=== PATIENT | male | born 1945 | race Asian ===

== ENCOUNTER → 2017-07-09 | Outpatient (CLI) | payer MEDICARE ==
[~2017-07-09] MED LIST: ASPI-650 PO; CLOP75TA PO; ENAL10TA PO; FAMO20TA7 PO; LATA2.5D3 EACHEYE; METO50TA82 PO
== END | disposition home or self-care (01) ==
LOC: RAD 16:11
PROVIDERS: ATTEND Family Medicine
DX: N45.1 Epididymitis (principal); N43.2 Other hydrocele
CPT/HCPCS: 76870

== ENCOUNTER → 2018-01-11 | Outpatient (CLI) | payer MEDICARE ==
[~2018-01-11] MED LIST changes: +LIDOCAINE 1%, 20ML ONE
== END | disposition home or self-care (01) ==
LOC: RAD 09:13
PROVIDERS: ATTEND Otolaryngology
DX: R22.1 Localized swelling, mass and lump, neck (principal)
CPT/HCPCS: 76536; 76942; 88173; J3490

== ENCOUNTER → 2018-02-11 | Outpatient (CLI) | payer MEDICARE ==
[~2018-02-11] MED LIST changes: -LIDOCAINE 1%, 20ML ONE
== END | disposition home or self-care (01) ==
LOC: CFH 07:43
PROVIDERS: ATTEND Family Medicine
DX: M51.16 Intervertebral disc disorders with radiculopathy, lumbar region (principal); M48.061 Spinal stenosis, lumbar region without neurogenic claudication; M25.78 Osteophyte, vertebrae; M25.551 Pain in right hip; Z96.651 Presence of right artificial knee joint
CPT/HCPCS: 72148

== ENCOUNTER → 2018-02-21 | Outpatient (CLI) | payer MEDICARE | END | disposition home or self-care (01) | LOC: CFH 15:16 | PROVIDERS: ATTEND Family Medicine | DX: I10 Essential (primary) hypertension (principal); I65.23 Occlusion and stenosis of bilateral carotid arteries; R20.2 Paresthesia of skin; M54.9 Dorsalgia, unspecified; M25.551 Pain in right hip | CPT/HCPCS: 93880 ==

== ENCOUNTER → 2019-04-02 | Outpatient (CLI) | payer MEDICARE | END | disposition home or self-care (01) | LOC: CFH 10:35 | PROVIDERS: ATTEND Internal Medicine Cardiovascular Disease | DX: I35.1 Nonrheumatic aortic (valve) insufficiency (principal); I35.8 Other nonrheumatic aortic valve disorders; I10 Essential (primary) hypertension; E78.5 Hyperlipidemia, unspecified | CPT/HCPCS: 93306 ==

== ENCOUNTER 2019-09-11 13:32 | Inpatient (IN) | payer MEDICARE ==
[~2019-09-11] VITALS: Ht 167.6 cm; Wt 58.0 kg
[2019-09-11] MEDS ORDERED: methylPREDNISolone SOD SUCC 125 MG/2 ML ONE (13:55)
[2019-09-11] MEDS ORDERED: ALBUTEROL/IPRATROPIUM 2.5MG/0.5MG, 3 ML NPPB SCH (14:00)
[2019-09-11] MEDS ORDERED: methylPREDNISolone SOD SUCC 125 MG/2 ML IV ONE (14:00)
[2019-09-11] MEDS ORDERED: ALBUTEROL/IPRATROPIUM 2.5MG/0.5MG, 3 ML ONE (14:11)
--- NOTE | 2019-09-11 14:14 | NUR ---
PT HERE TODAY FOR SOB THAT STARTED LAST NIGHT. USED INHALER MULTIPLE TIMES BEFORE COMING TO ER. CURRENTLY RESTING ON GURNEY. USING ACCESSORY MUSCLES TO BREATHE AND INSPIRATORY AND EXPIRATORY WHEEZES HEARD. FAMILY AT BEDSIDE. PIV STARTED. PT MEDICATED PER EMAR. BLOOD COLLECTED. WAS AT BEDSIDE TO ASSESS PT. RADIOLOGY CURRENTLY AT BEDSIDE.
--- NOTE | 2019-09-11 14:19 | NUR ---
RESPIRATORY THERAPIST AT BEDSIDE PROVIDING TREATMENT NOW.
[2019-09-11 14:39] LABS: BASOPHILS # (AUTO) 0.06 x10^3/uL (0-0.1); BASOPHILS % (AUTO) 0 % (0-1); EOSINOPHILS # (AUTO) 0.13 x10^3/uL (0-0.4); EOSINOPHILS % (AUTO) 1 % (1-7); LYMPHOCYTES # (AUTO) 0.64 x10^3/uL (1-3.4); LYMPHOCYTES % (AUTO) 4 % (22-44); MD NO; MEAN CORPUSCULAR HEMOGLOBIN 31.3 pg (27.5-34.5); MEAN CORPUSCULAR HGB CONC 32.7 g/dL (33.2-36.2); MEAN CORPUSCULAR VOLUME 95.8 fL (81-97); MEAN PLATELET VOLUME 8.4 fL (7.4-10.4); MONOCYTES # (AUTO) 0.33 x10^3/uL (0.2-0.8); MONOCYTES % (AUTO) 2 % (2-9); NEUTROPHILS # (AUTO) 13.85 x10^3/uL (1.8-6.8); NEUTROPHILS % (AUTO) 92 % (42-75); PLATELET COUNT 173 x10^3/uL (130-400); RED CELL DISTRIBUTION WIDTH 14.4 % (9.4-14.8)
[2019-09-11 14:44] LABS: ALANINE AMINOTRANSFERASE 40 U/L (12-78); ALBUMIN 3.4 g/dL (3.4-5.0); ANION GAP 6 mmol/L (5-15); CALCIUM 8.4 mg/dL (8.5-10.1); CHLORIDE 110 mmol/L (98-107); CREATININE 1.22 mg/dL (0.7-1.3)
[2019-09-11 14:49] LABS: ALKALINE PHOSPHATASE 88 U/L (45-117); BILIRUBIN,TOTAL 0.6 mg/dL (0.2-1.0); TOTAL PROTEIN 8.2 g/dL (6.4-8.2); TROPONIN I < 0.015 ng/mL (0.000-0.045)
[2019-09-11] MEDS ORDERED: ATOR20TA37 PO (14:51)
[2019-09-11] MEDS ORDERED: AMLO-150 PO (14:51)
[2019-09-11] MEDS ORDERED: LABE100T6 PO (14:51)
--- NOTE | 2019-09-11 14:53 | NUR ---
MED REC COMPLETED. PT RESTING ON GURNEY. PATTERSON. VSS. STATES HE FEELS BETTER. NOW ABLE TO SPEAK IN FULL SENTENCES WITHOUT TAKING MULTIPLE BREATHS.
--- NOTE | 2019-09-11 15:24 | NUR ---
[facility] AT BEDSIDE ASSESSING PT NOW.
[2019-09-11] MEDS ORDERED: BUDE10.2 INH (15:43)
[2019-09-11] MEDS ORDERED: IPRA4AER INH (15:43)
--- NOTE | 2019-09-11 15:48 | NUR ---
REPORT GIVEN TO MEKHI DRAKE.
[2019-09-11] MEDS ORDERED: LABETALOL 5 MG/ML SYR. (IV ONLY) IVPush PRN (16:00)
[2019-09-11] MEDS ORDERED: hydrALAzine 20 MG/ML, 1ML IVPush PRN (16:00)
[2019-09-11] MEDS: ALBUTEROL SULFATE 2.5 MG/3 ML NPPB SCH ×2 (16:00→20:18)
[2019-09-11] MEDS ORDERED: ALBUTEROL/IPRATROPIUM 2.5MG/0.5MG, 3 ML HHN SCH (16:00)
[2019-09-11] MEDS ORDERED: ACETAMINOPHEN 325 MG TABLET PO PRN (16:00)
[2019-09-11] MEDS ORDERED: ONDANSETRON 2MG/ML, 2ML IVPush PRN (16:00)
--- NOTE | 2019-09-11 16:18 | NUR ---
BLOOD CULTURES BEING DRAWN NOW.
[2019-09-11 16:52] VITALS: BP 121/66
[2019-09-11] MEDS: NICOTINE 7 MG/24 HR PATCH.TD24 TD SCH (17:00)
[2019-09-11] MEDS ORDERED: ENOXAPARIN 40 MG/0.4 ML SQ SCH (17:00)
[2019-09-11] MEDS ORDERED: CEFTRIAXONE PMX 1GM/50ML 50 ML IV SCH (17:00)
[2019-09-11] MEDS ORDERED: PROMETHAZINE 25 MG/ML, 1ML IM PRN (17:00)
[2019-09-11] MEDS ORDERED: AZITHROMYCIN 500 MG in SODIUM CHLORIDE 0.9% 250 ML IV SCH (17:30)
[2019-09-11] MEDS: GUAIFENESIN 200 MG TABLET PO SCH ×2 (17:30→21:08)
[2019-09-11] MEDS: SODIUM CHLORIDE 0.9% 1,000 ML IV SCH (17:30)
[2019-09-11 18:25] LABS: RAPID INFLUENZA A Negative (Negative); RAPID INFLUENZA B Negative (Negative)
[2019-09-11] MEDS: BUDESONIDE 0.5 MG/2 ML INHA NPPB SCH (20:18)
[2019-09-11] MEDS: LATANOPROST OPHTH 0.005%, 2.5ML EACHEYE SCH (21:06)
[2019-09-11] MEDS: LABETALOL 100 MG TABLET PO SCH (21:07)
[2019-09-11] MEDS: CALCIUM CARBONATE 500 MG TABLET PO SCH (21:07)
[2019-09-11] MEDS: ATORVASTATIN 20 MG TABLET PO SCH (21:07)
[2019-09-11] MEDS: methylPREDNISolone SOD SUCC 125 MG/2 ML IVPush SCH (21:07)
[2019-09-11 21:44] VITALS: BP 114/51
[2019-09-11 22:35] LABS: MICROSCOPIC AUTO
[2019-09-12] MEDS: methylPREDNISolone SOD SUCC 125 MG/2 ML IVPush SCH ×4 (02:49→21:22)
[2019-09-12 02:54] VITALS: BP 161/89
[2019-09-12] MEDS: ALBUTEROL SULFATE 2.5 MG/3 ML NPPB SCH ×3 (03:11→14:15)
[2019-09-12] MEDS: GUAIFENESIN 200 MG TABLET PO SCH ×4 (05:38→21:21)
[2019-09-12] MEDS: SODIUM CHLORIDE 0.9% 1,000 ML IV SCH (05:38)
[2019-09-12 05:45] LABS: MEAN CORPUSCULAR HEMOGLOBIN 31.9 pg (27.5-34.5); MEAN CORPUSCULAR HGB CONC 33.1 g/dL (33.2-36.2); MEAN CORPUSCULAR VOLUME 96.5 fL (81-97); MEAN PLATELET VOLUME 8.7 fL (7.4-10.4); PLATELET COUNT 156 x10^3/uL (130-400); RED BLOOD COUNT 3.59 x10^6/uL (4.38-5.82); RED CELL DISTRIBUTION WIDTH 14.5 % (9.4-14.8)
[2019-09-12 05:52] LABS: CHLORIDE 110 mmol/L (98-107)
[2019-09-12 05:58] LABS: ALANINE AMINOTRANSFERASE 35 U/L (12-78); ALKALINE PHOSPHATASE 75 U/L (45-117); ANION GAP 7 mmol/L (5-15); BILIRUBIN,TOTAL 0.3 mg/dL (0.2-1.0); CALCIUM 8.2 mg/dL (8.5-10.1); CREATININE 1.53 mg/dL (0.7-1.3); TOTAL PROTEIN 7.3 g/dL (6.4-8.2)
[2019-09-12 06:24] LABS: BASOPHILS # (AUTO) 0.01 x10^3/uL (0-0.1); BASOPHILS % (AUTO) 0 % (0-1); EOSINOPHILS % (AUTO) 0 % (1-7); LYMPHOCYTES # (AUTO) 0.62 x10^3/uL (1-3.4); LYMPHOCYTES % (AUTO) 8 % (22-44); MD NO; MONOCYTES # (AUTO) 0.09 x10^3/uL (0.2-0.8); MONOCYTES % (AUTO) 1 % (2-9); NEUTROPHILS # (AUTO) 7.16 x10^3/uL (1.8-6.8); NEUTROPHILS % (AUTO) 91 % (42-75)
[2019-09-12 06:49] VITALS: BP 106/63
[2019-09-12] MEDS: FAMOTIDINE 20 MG TABLET PO SCH (08:25)
[2019-09-12] MEDS: AMLODIPINE 5 MG TABLET PO SCH ×2 (08:25→08:37)
[2019-09-12] MEDS: CALCIUM CARBONATE 500 MG TABLET PO SCH (08:25)
[2019-09-12] MEDS: AZITHROMYCIN 500 MG TABLET PO SCH (08:25)
[2019-09-12] MEDS: ASPIRIN 325 MG TABLET EC PO SCH (08:25)
[2019-09-12] MEDS: CLOPIDOGREL 75 MG TABLET PO SCH (08:25)
[2019-09-12] MEDS: LABETALOL 100 MG TABLET PO SCH ×3 (08:26→21:21)
[2019-09-12 08:32] VITALS: BP 99/50
[2019-09-12] MEDS ORDERED: AMOXICILLIN/CLAV 875-125MG TABLET PO SCH (09:00)
[2019-09-12] MEDS ORDERED: ENALAPRIL 10 MG TABLET PO SCH (09:00)
[2019-09-12] MEDS: BUDESONIDE 0.5 MG/2 ML INHA NPPB SCH ×2 (09:18→19:26)
[2019-09-12 12:32] LABS: HEMOGLOBIN A1C 5.8 % (4.2-6.3)
[2019-09-12] MEDS: HEPARIN 5,000 UNITS/ML, 1ML SQ SCH ×2 (12:33→21:22)
[2019-09-12 13:29] VITALS: BP 140/70
[2019-09-12 13:50] VITALS: BP 134/77
[2019-09-12] MEDS: ALBUTEROL SULFATE 2.5 MG/3 ML NPPB PRN (14:15)
[2019-09-12] MEDS: NICOTINE 7 MG/24 HR PATCH.TD24 TD SCH (17:00)
[2019-09-12] MEDS ORDERED: SODIUM CHLORIDE 0.9% 1,000 ML IV SCH (17:00)
[2019-09-12] MEDS: ALBUTEROL/IPRATROPIUM 2.5MG/0.5MG, 3 ML NPPB SCH (19:26)
[2019-09-12 19:48] VITALS: BP 160/71
[2019-09-12] MEDS ORDERED: TEMPLATE NON-FORMULARY MED. (Budesonide/Formoterol Fumarate (Symbicort 160-4.5 Mcg Inhaler INH SCH (21:00)
[2019-09-12] MEDS: LATANOPROST OPHTH 0.005%, 2.5ML EACHEYE SCH (21:21)
[2019-09-12] MEDS: ATORVASTATIN 20 MG TABLET PO SCH (21:21)
[2019-09-12] MEDS: CALCIUM CARBONATE 500 MG TAB.CHEW PO PRN (21:54)
[2019-09-13] MEDS: ALBUTEROL/IPRATROPIUM 2.5MG/0.5MG, 3 ML NPPB SCH ×4 (00:37→18:43)
[2019-09-13] MEDS: CALCIUM CARBONATE 500 MG TAB.CHEW PO PRN ×2 (01:28→20:15)
[2019-09-13 02:02] VITALS: BP 115/68
[2019-09-13 02:21] LABS: BASOPHILS # (AUTO) 0.01 x10^3/uL (0-0.1); BASOPHILS % (AUTO) 0 % (0-1); EOSINOPHILS # (AUTO) 0.22 x10^3/uL (0-0.4); EOSINOPHILS % (AUTO) 1 % (1-7); LYMPHOCYTES # (AUTO) 0.61 x10^3/uL (1-3.4); LYMPHOCYTES % (AUTO) 4 % (22-44); MD NO; MEAN CORPUSCULAR HEMOGLOBIN 31.9 pg (27.5-34.5); MEAN CORPUSCULAR HGB CONC 32.9 g/dL (33.2-36.2); MEAN CORPUSCULAR VOLUME 96.8 fL (81-97); MEAN PLATELET VOLUME 8.5 fL (7.4-10.4); MONOCYTES # (AUTO) 0.44 x10^3/uL (0.2-0.8); MONOCYTES % (AUTO) 3 % (2-9); NEUTROPHILS # (AUTO) 14.04 x10^3/uL (1.8-6.8); NEUTROPHILS % (AUTO) 92 % (42-75); PLATELET COUNT 167 x10^3/uL (130-400); RED BLOOD COUNT 3.61 x10^6/uL (4.38-5.82)
[2019-09-13] MEDS: methylPREDNISolone SOD SUCC 125 MG/2 ML IVPush SCH ×4 (02:24→19:58)
[2019-09-13 02:32] LABS: ALANINE AMINOTRANSFERASE 35 U/L (12-78); ANION GAP 5 mmol/L (5-15); CALCIUM 8.8 mg/dL (8.5-10.1); CHLORIDE 112 mmol/L (98-107); CREATININE 1.61 mg/dL (0.7-1.3)
[2019-09-13 02:34] LABS: ALKALINE PHOSPHATASE 76 U/L (45-117); BILIRUBIN,TOTAL 0.3 mg/dL (0.2-1.0); TOTAL PROTEIN 7.4 g/dL (6.4-8.2)
[2019-09-13] MEDS ORDERED: LORazepam 0.5MG TABLET PO ONE ×2 (03:34→04:00)
[2019-09-13] MEDS: GUAIFENESIN 200 MG TABLET PO SCH ×4 (06:24→19:58)
[2019-09-13] MEDS: BUDESONIDE 0.5 MG/2 ML INHA NPPB SCH ×2 (06:48→18:43)
[2019-09-13 07:13] VITALS: BP 162/76
[2019-09-13] MEDS ORDERED: MORPHINE SULFATE 4 MG/ML, 1ML IVPush ONE (07:30)
[2019-09-13] MEDS ORDERED: MAGNESIUM SULFATE PMX 2GM/50ML 50 ML IV ONE (07:30)
[2019-09-13] MEDS: HEPARIN 5,000 UNITS/ML, 1ML SQ SCH ×2 (07:40→15:46)
[2019-09-13 08:15] VITALS: BP 156/76
[2019-09-13] MEDS ORDERED: SODIUM CHLORIDE 0.9% 1,000ML IVBOLUS ONE (08:30)
[2019-09-13] MEDS ORDERED: TEMPLATE NON-FORMULARY MED. (Ipratropium/Albuterol Sulfate (Combivent Respimat Inhal Spray INH SCH (09:00)
[2019-09-13] MEDS: AMLODIPINE 5 MG TABLET PO SCH (09:17)
[2019-09-13] MEDS: LABETALOL 100 MG TABLET PO SCH ×2 (09:17→20:01)
[2019-09-13] MEDS: AZITHROMYCIN 500 MG TABLET PO SCH (09:17)
[2019-09-13] MEDS: CLOPIDOGREL 75 MG TABLET PO SCH (09:17)
[2019-09-13] MEDS: FAMOTIDINE 20 MG TABLET PO SCH (09:17)
[2019-09-13] MEDS: ASPIRIN 325 MG TABLET EC PO SCH (09:17)
[2019-09-13] MEDS: ALBUTEROL SULFATE 2.5 MG/3 ML NPPB PRN (11:40)
[2019-09-13 13:10] VITALS: BP 155/79
[2019-09-13] MEDS: NICOTINE 7 MG/24 HR PATCH.TD24 TD SCH (15:47)
[2019-09-13] MEDS ORDERED: SODIUM CHLORIDE 0.9% 1,000 ML IV SCH (17:00)
[2019-09-13] MEDS: ATORVASTATIN 20 MG TABLET PO SCH (19:58)
[2019-09-13] MEDS: LATANOPROST OPHTH 0.005%, 2.5ML EACHEYE SCH (19:58)
[2019-09-13 20:00] VITALS: BP 124/71
[2019-09-13 20:19] VITALS: BP 138/73
[2019-09-13] MEDS ORDERED: FAMOTIDINE 20 MG TABLET PO SCH (21:00)
[2019-09-14] MEDS: HEPARIN 5,000 UNITS/ML, 1ML SQ SCH ×4 (00:52→23:33)
[2019-09-14] MEDS: methylPREDNISolone SOD SUCC 125 MG/2 ML IVPush SCH ×4 (02:02→20:56)
[2019-09-14] MEDS: ALBUTEROL/IPRATROPIUM 2.5MG/0.5MG, 3 ML NPPB SCH ×4 (02:24→23:05)
[2019-09-14 02:28] VITALS: BP 164/94
[2019-09-14 05:31] LABS: MEAN CORPUSCULAR HEMOGLOBIN 31.5 pg (27.5-34.5); MEAN CORPUSCULAR HGB CONC 32.7 g/dL (33.2-36.2); MEAN CORPUSCULAR VOLUME 96.5 fL (81-97); MEAN PLATELET VOLUME 8.6 fL (7.4-10.4); PLATELET COUNT 158 x10^3/uL (130-400); RED BLOOD COUNT 3.49 x10^6/uL (4.38-5.82); RED CELL DISTRIBUTION WIDTH 14.9 % (9.4-14.8)
[2019-09-14 05:37] LABS: CHLORIDE 110 mmol/L (98-107)
[2019-09-14 05:39] LABS: ANION GAP 3 mmol/L (5-15); CALCIUM 8.5 mg/dL (8.5-10.1); CREATININE 1.55 mg/dL (0.7-1.3)
[2019-09-14] MEDS: GUAIFENESIN 200 MG TABLET PO SCH ×4 (05:54→20:56)
[2019-09-14] MEDS ORDERED: ALBUTEROL/IPRATROPIUM 2.5MG/0.5MG, 3 ML NPPB SCH ×2 (06:00→10:30)
[2019-09-14 06:21] LABS: BASOPHILS % (AUTO) 0 % (0-1); EOSINOPHILS % (AUTO) 0 % (1-7); LYMPHOCYTES # (AUTO) 0.45 x10^3/uL (1-3.4); LYMPHOCYTES % (AUTO) 4 % (22-44); MD SCAN; MONOCYTES % (AUTO) 2 % (2-9); NEUTROPHILS # (AUTO) 12.52 x10^3/uL (1.8-6.8); NEUTROPHILS % (AUTO) 95 % (42-75)
[2019-09-14] MEDS: BUDESONIDE 0.5 MG/2 ML INHA NPPB SCH ×2 (07:10→19:20)
[2019-09-14 07:27] VITALS: BP 161/87
[2019-09-14] MEDS: morphine SULFATE 10 MG/ML, 1ML IVPush PRN ×2 (08:47→12:37)
[2019-09-14] MEDS: ASPIRIN 325 MG TABLET EC PO SCH (08:47)
[2019-09-14] MEDS: AMLODIPINE 5 MG TABLET PO SCH (08:48)
[2019-09-14] MEDS: LABETALOL 100 MG TABLET PO SCH ×2 (08:48→20:56)
[2019-09-14] MEDS: FAMOTIDINE 20 MG TABLET PO SCH (08:48)
[2019-09-14] MEDS: CLOPIDOGREL 75 MG TABLET PO SCH (08:48)
[2019-09-14] MEDS: AZITHROMYCIN 500 MG TABLET PO SCH (08:48)
[2019-09-14] MEDS: THEOPHYLLINE 100 MG CAP.ER.24H PO SCH (09:28)
[2019-09-14 13:34] VITALS: BP 156/91
[2019-09-14] MEDS: LORazepam 2 MG/ML, 1ML IVPush PRN ×2 (15:34→23:33)
[2019-09-14] MEDS: NICOTINE 7 MG/24 HR PATCH.TD24 TD SCH (15:36)
[2019-09-14] MEDS: FUROSEMIDE 20 MG/2 ML IV SCH (17:16)
[2019-09-14 19:07] VITALS: BP 124/90
[2019-09-14] MEDS: ATORVASTATIN 20 MG TABLET PO SCH (20:56)
[2019-09-14] MEDS: LATANOPROST OPHTH 0.005%, 2.5ML EACHEYE SCH (21:42)
[2019-09-15 02:02] VITALS: BP 128/72
[2019-09-15] MEDS: methylPREDNISolone SOD SUCC 125 MG/2 ML IVPush SCH ×4 (02:08→20:16)
[2019-09-15 04:56] LABS: MEAN CORPUSCULAR HEMOGLOBIN 31.8 pg (27.5-34.5); MEAN CORPUSCULAR HGB CONC 32.8 g/dL (33.2-36.2); MEAN CORPUSCULAR VOLUME 97.1 fL (81-97); MEAN PLATELET VOLUME 8.8 fL (7.4-10.4); PLATELET COUNT 154 x10^3/uL (130-400); RED BLOOD COUNT 3.53 x10^6/uL (4.38-5.82); RED CELL DISTRIBUTION WIDTH 14.9 % (9.4-14.8)
[2019-09-15 05:08] LABS: ANION GAP 5 mmol/L (5-15); CALCIUM 8.2 mg/dL (8.5-10.1); CHLORIDE 109 mmol/L (98-107)
[2019-09-15 05:09] LABS: CREATININE 1.58 mg/dL (0.7-1.3)
[2019-09-15] MEDS: GUAIFENESIN 200 MG TABLET PO SCH ×4 (05:21→20:16)
[2019-09-15] MEDS: FUROSEMIDE 20 MG/2 ML IV SCH ×2 (05:21→17:46)
[2019-09-15 06:00] LABS: BASOPHILS % (AUTO) 0 % (0-1); EOSINOPHILS % (AUTO) 0 % (1-7); LYMPHOCYTES # (AUTO) 0.43 x10^3/uL (1-3.4); LYMPHOCYTES % (AUTO) 4 % (22-44); MD SCAN; MONOCYTES # (AUTO) 0.25 x10^3/uL (0.2-0.8); MONOCYTES % (AUTO) 2 % (2-9); NEUTROPHILS # (AUTO) 11.65 x10^3/uL (1.8-6.8); NEUTROPHILS % (AUTO) 95 % (42-75)
[2019-09-15] MEDS: ALBUTEROL/IPRATROPIUM 2.5MG/0.5MG, 3 ML NPPB SCH ×5 (06:55→23:00)
[2019-09-15] MEDS: BUDESONIDE 0.5 MG/2 ML INHA NPPB SCH ×2 (06:55→18:59)
[2019-09-15 07:15] VITALS: BP 146/83
[2019-09-15] MEDS: AMLODIPINE 5 MG TABLET PO SCH (09:06)
[2019-09-15] MEDS: ASPIRIN 325 MG TABLET EC PO SCH (09:06)
[2019-09-15] MEDS: THEOPHYLLINE 100 MG CAP.ER.24H PO SCH (09:07)
[2019-09-15] MEDS: FAMOTIDINE 20 MG TABLET PO SCH (09:07)
[2019-09-15] MEDS: CLOPIDOGREL 75 MG TABLET PO SCH (09:07)
[2019-09-15] MEDS: LABETALOL 100 MG TABLET PO SCH ×2 (09:07→20:16)
[2019-09-15] MEDS: AZITHROMYCIN 500 MG TABLET PO SCH (09:07)
[2019-09-15] MEDS: HEPARIN 5,000 UNITS/ML, 1ML SQ SCH ×3 (09:08→23:58)
[2019-09-15] MEDS: morphine SULFATE 10 MG/ML, 1ML IVPush PRN (09:08)
[2019-09-15] MEDS ORDERED: RACEPINEPHRINE INH 2.25%, 0.5ML NPPB ONE (10:30)
[2019-09-15] MEDS: LORazepam 2 MG/ML, 1ML IVPush PRN (10:45)
[2019-09-15] MEDS ORDERED: FUROSEMIDE 20 MG/2 ML IV SCH (13:00)
[2019-09-15 13:36] VITALS: BP 143/83
[2019-09-15] MEDS: NICOTINE 7 MG/24 HR PATCH.TD24 TD SCH (17:45)
[2019-09-15 19:59] VITALS: BP 139/89
[2019-09-15] MEDS: ATORVASTATIN 20 MG TABLET PO SCH (20:16)
[2019-09-15] MEDS: LATANOPROST OPHTH 0.005%, 2.5ML EACHEYE SCH (20:17)
[2019-09-15] MEDS ORDERED: OMNIPAQUE 350 MG/ML, 75ML BOTTLE ONE (21:38)
[2019-09-16] MEDS: methylPREDNISolone SOD SUCC 125 MG/2 ML IVPush SCH ×4 (02:01→22:02)
[2019-09-16 02:07] VITALS: BP 140/88
[2019-09-16] MEDS: morphine SULFATE 10 MG/ML, 1ML IVPush PRN (02:13)
[2019-09-16] MEDS ORDERED: MORPHINE SULFATE 4 MG/ML, 1ML IVPush ONE (05:00)
[2019-09-16] MEDS: FUROSEMIDE 20 MG/2 ML IV SCH ×2 (05:07→15:57)
[2019-09-16 05:31] LABS: MEAN CORPUSCULAR HEMOGLOBIN 31.7 pg (27.5-34.5); MEAN CORPUSCULAR HGB CONC 32.6 g/dL (33.2-36.2); MEAN CORPUSCULAR VOLUME 97.3 fL (81-97); MEAN PLATELET VOLUME 8.6 fL (7.4-10.4); PLATELET COUNT 193 x10^3/uL (130-400); RED BLOOD COUNT 3.68 x10^6/uL (4.38-5.82); RED CELL DISTRIBUTION WIDTH 14.5 % (9.4-14.8)
[2019-09-16 05:44] LABS: CHLORIDE 105 mmol/L (98-107)
[2019-09-16 05:49] LABS: ALBUMIN 3.4 g/dL (3.4-5.0); ANION GAP 10 mmol/L (5-15); BASOPHILS % (AUTO) 0 % (0-1); CALCIUM 8.4 mg/dL (8.5-10.1); CREATININE 1.97 mg/dL (0.7-1.3); EOSINOPHILS # (AUTO) 0.13 x10^3/uL (0-0.4); EOSINOPHILS % (AUTO) 1 % (1-7); LYMPHOCYTES # (AUTO) 0.55 x10^3/uL (1-3.4); LYMPHOCYTES % (AUTO) 4 % (22-44); MD SCAN; MONOCYTES # (AUTO) 0.45 x10^3/uL (0.2-0.8); MONOCYTES % (AUTO) 3 % (2-9); NEUTROPHILS # (AUTO) 14.09 x10^3/uL (1.8-6.8); NEUTROPHILS % (AUTO) 93 % (42-75)
[2019-09-16] MEDS: GUAIFENESIN 200 MG TABLET PO SCH ×4 (06:15→20:35)
[2019-09-16] MEDS: BUDESONIDE 0.5 MG/2 ML INHA NPPB SCH ×2 (06:55→19:10)
[2019-09-16] MEDS: ALBUTEROL/IPRATROPIUM 2.5MG/0.5MG, 3 ML NPPB SCH ×5 (06:55→22:54)
[2019-09-16 08:00] VITALS: BP 160/88
[2019-09-16] MEDS: CLOPIDOGREL 75 MG TABLET PO SCH (08:35)
[2019-09-16] MEDS: AZITHROMYCIN 500 MG TABLET PO SCH (08:35)
[2019-09-16] MEDS: AMLODIPINE 5 MG TABLET PO SCH (08:35)
[2019-09-16] MEDS: ASPIRIN 325 MG TABLET EC PO SCH (08:35)
[2019-09-16] MEDS: FAMOTIDINE 20 MG TABLET PO SCH (08:35)
[2019-09-16] MEDS: LABETALOL 100 MG TABLET PO SCH ×2 (08:35→20:36)
[2019-09-16] MEDS: THEOPHYLLINE 100 MG CAP.ER.24H PO SCH (08:35)
[2019-09-16] MEDS: HEPARIN 5,000 UNITS/ML, 1ML SQ SCH ×3 (08:36→23:47)
[2019-09-16] MEDS: MORPHINE SULFATE 4 MG/ML, 1ML IVPush PRN (08:37)
[2019-09-16] MEDS: CEFTRIAXONE PMX 1GM/50ML 50 ML IV SCH (12:28)
--- NOTE | 2019-09-16 14:18 | NUR ---
MAINTENANCE ANALYST REC PUREE/NTL: Upright at 90* for PO intake Meds floated in puree 1:1 superviison Double swallow Effortful swallow Stop PO with any difficulty or s/sx of aspiration SWALLOW SIGN POSTED Addendum: 09/16/19 at 1418 by Cristina PALOMO Amended: Links added.
[2019-09-16 14:55] VITALS: BP 153/76
[2019-09-16] MEDS: NICOTINE 7 MG/24 HR PATCH.TD24 TD SCH (15:58)
[2019-09-16 18:39] VITALS: BP 146/79
[2019-09-16] MEDS: ATORVASTATIN 20 MG TABLET PO SCH (20:35)
[2019-09-16] MEDS: LATANOPROST OPHTH 0.005%, 2.5ML EACHEYE SCH (20:36)
[2019-09-16] MEDS: OXYcodone IR 5MG TABLET PO PRN (23:50)
[2019-09-17] VITALS (10 sets, daily range): BP systolic 125–172; BP diastolic 72–90
[2019-09-17] MEDS: methylPREDNISolone SOD SUCC 125 MG/2 ML IVPush SCH ×4 (04:13→23:06)
[2019-09-17 04:54] LABS: MEAN CORPUSCULAR HEMOGLOBIN 31.6 pg (27.5-34.5); MEAN CORPUSCULAR HGB CONC 32.8 g/dL (33.2-36.2); MEAN CORPUSCULAR VOLUME 96.4 fL (81-97); RED BLOOD COUNT 2.32 x10^6/uL (4.38-5.82); RED CELL DISTRIBUTION WIDTH 14.5 % (9.4-14.8)
[2019-09-17 04:59] LABS: ALBUMIN 2.8 g/dL (3.4-5.0); ANION GAP 5 mmol/L (5-15); CALCIUM 7.8 mg/dL (8.5-10.1); CHLORIDE 106 mmol/L (98-107); CREATININE 2.41 mg/dL (0.7-1.3)
[2019-09-17] MEDS: FUROSEMIDE 20 MG/2 ML IV SCH ×2 (05:22→17:57)
[2019-09-17] MEDS: ALBUTEROL/IPRATROPIUM 2.5MG/0.5MG, 3 ML NPPB SCH ×5 (05:36→19:02)
[2019-09-17 05:43] LABS: BASOPHILS % (AUTO) 0 % (0-1); EOSINOPHILS % (AUTO) 0 % (1-7); LYMPHOCYTES # (AUTO) 0.49 x10^3/uL (1-3.4); LYMPHOCYTES % (AUTO) 4 % (22-44); MD SCAN; MEAN PLATELET VOLUME 9.2 fL (7.4-10.4); MONOCYTES % (AUTO) 4 % (2-9); NEUTROPHILS # (AUTO) 13.03 x10^3/uL (1.8-6.8); NEUTROPHILS % (AUTO) 92 % (42-75); PLATELET COUNT 133 x10^3/uL (130-400)
[2019-09-17] MEDS: GUAIFENESIN 200 MG TABLET PO SCH ×4 (06:05→21:11)
[2019-09-17] MEDS: OXYcodone IR 5MG TABLET PO PRN ×2 (06:05→12:45)
[2019-09-17 06:21] LABS: MEAN CORPUSCULAR HEMOGLOBIN 31.9 pg (27.5-34.5); MEAN CORPUSCULAR HGB CONC 33.4 g/dL (33.2-36.2); MEAN CORPUSCULAR VOLUME 95.6 fL (81-97); MEAN PLATELET VOLUME 8.7 fL (7.4-10.4); PLATELET COUNT 136 x10^3/uL (130-400); RED BLOOD COUNT 2.27 x10^6/uL (4.38-5.82)
[2019-09-17 06:47] LABS: BASOPHILS % (AUTO) 0 % (0-1); EOSINOPHILS # (AUTO) 0.08 x10^3/uL (0-0.4); EOSINOPHILS % (AUTO) 1 % (1-7); LYMPHOCYTES # (AUTO) 0.55 x10^3/uL (1-3.4); LYMPHOCYTES % (AUTO) 4 % (22-44); MD SCAN; MONOCYTES # (AUTO) 0.41 x10^3/uL (0.2-0.8); MONOCYTES % (AUTO) 3 % (2-9); NEUTROPHILS # (AUTO) 12.51 x10^3/uL (1.8-6.8); NEUTROPHILS % (AUTO) 92 % (42-75)
[2019-09-17] MEDS: BUDESONIDE 0.5 MG/2 ML INHA NPPB SCH ×2 (07:06→19:02)
[2019-09-17] MEDS: HEPARIN 5,000 UNITS/ML, 1ML SQ SCH ×3 (08:00→16:07)
[2019-09-17] MEDS: PINK LADY ENEMA 490 ML BOTTLE PR SCH ×3 (09:00→23:39)
[2019-09-17] MEDS ORDERED: SODIUM CHLORIDE 0.9% 1,000ML IVBOLUS ONE (09:00)
[2019-09-17] MEDS: FAMOTIDINE 20 MG TABLET PO SCH (10:28)
[2019-09-17] MEDS: CLOPIDOGREL 75 MG TABLET PO SCH (10:28)
[2019-09-17] MEDS: AMLODIPINE 5 MG TABLET PO SCH (10:28)
[2019-09-17] MEDS: ASPIRIN 325 MG TABLET EC PO SCH ×2 (10:29→10:30)
[2019-09-17] MEDS: AZITHROMYCIN 500 MG TABLET PO SCH (10:29)
[2019-09-17] MEDS: LABETALOL 100 MG TABLET PO SCH ×2 (10:29→21:11)
[2019-09-17] MEDS: THEOPHYLLINE 100 MG CAP.ER.24H PO SCH (10:54)
[2019-09-17] MEDS: CEFTRIAXONE PMX 1GM/50ML 50 ML IV SCH (11:28)
[2019-09-17 11:56] LABS: MEAN CORPUSCULAR HEMOGLOBIN 31.7 pg (27.5-34.5); MEAN CORPUSCULAR HGB CONC 33.3 g/dL (33.2-36.2); MEAN CORPUSCULAR VOLUME 95.1 fL (81-97); MEAN PLATELET VOLUME 9.3 fL (7.4-10.4); PLATELET COUNT 142 x10^3/uL (130-400); RED BLOOD COUNT 2.22 x10^6/uL (4.38-5.82); RED CELL DISTRIBUTION WIDTH 14.1 % (9.4-14.8)
[2019-09-17 12:15] LABS: BASOPHILS # (AUTO) 0.01 x10^3/uL (0-0.1); BASOPHILS % (AUTO) 0 % (0-1); EOSINOPHILS % (AUTO) 0 % (1-7); LYMPHOCYTES # (AUTO) 0.51 x10^3/uL (1-3.4); LYMPHOCYTES % (AUTO) 4 % (22-44); MD SCAN; MONOCYTES % (AUTO) 4 % (2-9); NEUTROPHILS # (AUTO) 13.33 x10^3/uL (1.8-6.8); NEUTROPHILS % (AUTO) 93 % (42-75)
[2019-09-17] MEDS ORDERED: MAGNESIUM HYDROXIDE 8%, 30ML UDC PO PRN (13:30)
[2019-09-17] MEDS ORDERED: BISACODYL 10 MG SUPP PR PRN (13:30)
[2019-09-17 14:22] LABS: OCCULT BLOOD NEGATIVE (NEGATIVE)
[2019-09-17] MEDS: THEOPHYLLINE 80 MG/15 ML PO SCH ×2 (15:00→21:11)
[2019-09-17] MEDS: MORPHINE SULFATE 4 MG/ML, 1ML IVPush PRN (15:04)
[2019-09-17] MEDS: NICOTINE 7 MG/24 HR PATCH.TD24 TD SCH (17:58)
[2019-09-17] MEDS: ATORVASTATIN 20 MG TABLET PO SCH (21:11)
[2019-09-17] MEDS: LATANOPROST OPHTH 0.005%, 2.5ML EACHEYE SCH (23:06)
[2019-09-17] MEDS: CALCIUM CARBONATE 500 MG TAB.CHEW PO PRN (23:19)
[2019-09-18 00:06] VITALS: BP 169/78
[2019-09-18] MEDS: HEPARIN 5,000 UNITS/ML, 1ML SQ SCH ×3 (00:16→16:00)
[2019-09-18 00:25] VITALS: BP 168/86
[2019-09-18 01:23] VITALS: BP 149/88
[2019-09-18] MEDS: methylPREDNISolone SOD SUCC 125 MG/2 ML IVPush SCH ×4 (05:09→20:44)
[2019-09-18] MEDS: FUROSEMIDE 20 MG/2 ML IV SCH ×3 (05:10→20:54)
[2019-09-18] MEDS: GUAIFENESIN 200 MG TABLET PO SCH ×4 (05:10→20:44)
[2019-09-18] MEDS: THEOPHYLLINE 80 MG/15 ML PO SCH ×4 (05:10→20:41)
[2019-09-18 05:39] LABS: BASOPHILS % (AUTO) 0 % (0-1); CHLORIDE 103 mmol/L (98-107); EOSINOPHILS % (AUTO) 0 % (1-7); LYMPHOCYTES # (AUTO) 0.47 x10^3/uL (1-3.4); LYMPHOCYTES % (AUTO) 4 % (22-44); MD NO; MEAN CORPUSCULAR HEMOGLOBIN 31.3 pg (27.5-34.5); MEAN CORPUSCULAR HGB CONC 33.2 g/dL (33.2-36.2); MEAN CORPUSCULAR VOLUME 94.2 fL (81-97); MEAN PLATELET VOLUME 9.4 fL (7.4-10.4); MONOCYTES # (AUTO) 0.99 x10^3/uL (0.2-0.8); MONOCYTES % (AUTO) 7 % (2-9); NEUTROPHILS # (AUTO) 11.95 x10^3/uL (1.8-6.8); NEUTROPHILS % (AUTO) 89 % (42-75); PLATELET COUNT 109 x10^3/uL (130-400); RED BLOOD COUNT 2.66 x10^6/uL (4.38-5.82); RED CELL DISTRIBUTION WIDTH 14.8 % (9.4-14.8)
[2019-09-18 05:44] LABS: ANION GAP 10 mmol/L (5-15); CALCIUM 7.8 mg/dL (8.5-10.1); CREATININE 3.21 mg/dL (0.7-1.3)
[2019-09-18] MEDS: ALBUTEROL/IPRATROPIUM 2.5MG/0.5MG, 3 ML NPPB SCH ×3 (06:00→21:00)
[2019-09-18] MEDS: BUDESONIDE 0.5 MG/2 ML INHA NPPB SCH ×2 (06:34→21:00)
[2019-09-18 08:06] VITALS: BP 153/78
[2019-09-18] MEDS: PINK LADY ENEMA 490 ML BOTTLE PR SCH (08:09)
[2019-09-18] MEDS: AMLODIPINE 5 MG TABLET PO SCH (08:33)
[2019-09-18] MEDS: CLOPIDOGREL 75 MG TABLET PO SCH (08:33)
[2019-09-18] MEDS: FAMOTIDINE 20 MG TABLET PO SCH (08:33)
[2019-09-18] MEDS: LABETALOL 100 MG TABLET PO SCH ×2 (08:33→20:45)
[2019-09-18] MEDS: CEFTRIAXONE PMX 1GM/50ML 50 ML IV SCH (11:20)
[2019-09-18 12:24] VITALS: BP 154/78
[2019-09-18] MEDS: LORazepam 2 MG/ML, 1ML IVPush PRN ×2 (13:05→21:15)
[2019-09-18 19:02] VITALS: BP 151/76
[2019-09-18 19:14] LABS: INTERNATIONAL NORMALIZED RATIO 1.11 (0.93-1.1); PROTHROMBIN TIME 11.6 Seconds (9.6-11.5)
[2019-09-18] MEDS: LATANOPROST OPHTH 0.005%, 2.5ML EACHEYE SCH (20:39)
[2019-09-18] MEDS: CALCIUM CARBONATE 500 MG TAB.CHEW PO PRN (21:13)
[2019-09-18] MEDS: OXYcodone IR 5MG TABLET PO PRN (21:14)
[2019-09-18] MEDS: NICOTINE 7 MG/24 HR PATCH.TD24 TD SCH (21:15)
[2019-09-19] VITALS (10 sets, daily range): BP systolic 139–164; BP diastolic 64–79
[2019-09-19] MEDS: ALBUTEROL/IPRATROPIUM 2.5MG/0.5MG, 3 ML NPPB SCH ×4 (03:00→20:57)
[2019-09-19] MEDS: THEOPHYLLINE 80 MG/15 ML PO SCH ×3 (03:00→15:00)
[2019-09-19] MEDS: methylPREDNISolone SOD SUCC 125 MG/2 ML IVPush SCH (03:38)
[2019-09-19] MEDS: GUAIFENESIN 200 MG TABLET PO SCH ×4 (05:31→21:27)
[2019-09-19 05:38] LABS: MEAN CORPUSCULAR HEMOGLOBIN 31.3 pg (27.5-34.5); MEAN CORPUSCULAR HGB CONC 33.4 g/dL (33.2-36.2); MEAN PLATELET VOLUME 9.2 fL (7.4-10.4); PLATELET COUNT 117 x10^3/uL (130-400); RED BLOOD COUNT 2.41 x10^6/uL (4.38-5.82); RED CELL DISTRIBUTION WIDTH 14.4 % (9.4-14.8)
[2019-09-19 05:50] LABS: CHLORIDE 108 mmol/L (98-107)
[2019-09-19 05:58] LABS: ALANINE AMINOTRANSFERASE 53 U/L (12-78); ALKALINE PHOSPHATASE 48 U/L (45-117); ANION GAP 6 mmol/L (5-15); BASOPHILS % (AUTO) 0 % (0-1); BILIRUBIN,TOTAL 0.6 mg/dL (0.2-1.0); CREATININE 2.77 mg/dL (0.7-1.3); EOSINOPHILS % (AUTO) 0 % (1-7); LYMPHOCYTES # (AUTO) 0.23 x10^3/uL (1-3.4); LYMPHOCYTES % (AUTO) 2 % (22-44); MD SCAN; MONOCYTES # (AUTO) 0.47 x10^3/uL (0.2-0.8); MONOCYTES % (AUTO) 4 % (2-9); NEUTROPHILS # (AUTO) 12.24 x10^3/uL (1.8-6.8); NEUTROPHILS % (AUTO) 95 % (42-75); TOTAL PROTEIN 6.1 g/dL (6.4-8.2)
[2019-09-19] MEDS: BUDESONIDE 0.5 MG/2 ML INHA NPPB SCH ×2 (08:00→20:57)
[2019-09-19] MEDS: LABETALOL 100 MG TABLET PO SCH ×2 (08:33→21:27)
[2019-09-19] MEDS: AMLODIPINE 5 MG TABLET PO SCH (08:33)
[2019-09-19] MEDS: FAMOTIDINE 20 MG TABLET PO SCH (08:58)
[2019-09-19] MEDS: CEFTRIAXONE PMX 1GM/50ML 50 ML IV SCH (11:27)
--- NOTE | 2019-09-19 14:55 | NUR ---
REC THIN/GROUND; swallow precautions sheet posted at bedside Addendum: 09/19/19 at [address] Amended: Links added.
[2019-09-19] MEDS: methylPREDNISolone SOD SUCC 40 MG/ML IVPush SCH ×2 (15:06→21:27)
[2019-09-19] MEDS: NICOTINE 7 MG/24 HR PATCH.TD24 TD SCH (19:38)
[2019-09-19] MEDS: CALCIUM CARBONATE 500 MG TAB.CHEW PO PRN (20:20)
[2019-09-19] MEDS: LATANOPROST OPHTH 0.005%, 2.5ML EACHEYE SCH (21:36)
[2019-09-20] MEDS: CALCIUM CARBONATE 500 MG TAB.CHEW PO PRN ×2 (01:24→21:08)
[2019-09-20] MEDS: ALBUTEROL/IPRATROPIUM 2.5MG/0.5MG, 3 ML NPPB SCH ×4 (02:21→20:49)
[2019-09-20 03:12] VITALS: BP 144/71
[2019-09-20] MEDS: methylPREDNISolone SOD SUCC 40 MG/ML IVPush SCH ×4 (03:17→20:40)
[2019-09-20 03:57] LABS: ALBUMIN 2.9 g/dL (3.4-5.0); ANION GAP 5 mmol/L (5-15); CALCIUM 8.1 mg/dL (8.5-10.1); CHLORIDE 106 mmol/L (98-107)
[2019-09-20 04:01] LABS: ALANINE AMINOTRANSFERASE 51 U/L (12-78); ALKALINE PHOSPHATASE 51 U/L (45-117); BILIRUBIN,TOTAL 0.7 mg/dL (0.2-1.0); CREATININE 2.07 mg/dL (0.7-1.3); TOTAL PROTEIN 5.9 g/dL (6.4-8.2)
[2019-09-20] MEDS: GUAIFENESIN 200 MG TABLET PO SCH ×4 (05:19→20:41)
[2019-09-20 08:00] VITALS: BP 154/70
[2019-09-20] MEDS: BUDESONIDE 0.5 MG/2 ML INHA NPPB SCH ×2 (09:03→20:49)
[2019-09-20] MEDS: FAMOTIDINE 20 MG TABLET PO SCH (09:27)
[2019-09-20] MEDS: AMLODIPINE 5 MG TABLET PO SCH (09:27)
[2019-09-20] MEDS: LABETALOL 100 MG TABLET PO SCH ×2 (09:27→20:40)
[2019-09-20] MEDS: CEFTRIAXONE PMX 1GM/50ML 50 ML IV SCH (11:06)
[2019-09-20 13:20] VITALS: BP 136/64
[2019-09-20 19:28] VITALS: BP 151/70
[2019-09-20] MEDS: NICOTINE 7 MG/24 HR PATCH.TD24 TD SCH (20:41)
[2019-09-20] MEDS: LATANOPROST OPHTH 0.005%, 2.5ML EACHEYE SCH (20:41)
[2019-09-20] MEDS: POLYETHYLENE GLYCOL 17 GM PACKET PO PRN (20:57)
[2019-09-21 01:17] VITALS: BP 137/62
[2019-09-21] MEDS: ALBUTEROL/IPRATROPIUM 2.5MG/0.5MG, 3 ML NPPB SCH ×4 (03:00→21:02)
[2019-09-21] MEDS: methylPREDNISolone SOD SUCC 40 MG/ML IVPush SCH (03:21)
[2019-09-21] MEDS: GUAIFENESIN 200 MG TABLET PO SCH ×4 (05:51→20:30)
[2019-09-21 05:52] LABS: ALBUMIN 2.8 g/dL (3.4-5.0); ANION GAP 4 mmol/L (5-15); CALCIUM 8.1 mg/dL (8.5-10.1); CHLORIDE 107 mmol/L (98-107)
[2019-09-21 05:55] LABS: ALANINE AMINOTRANSFERASE 55 U/L (12-78); ALKALINE PHOSPHATASE 59 U/L (45-117); BILIRUBIN,TOTAL 0.7 mg/dL (0.2-1.0); CREATININE 1.67 mg/dL (0.7-1.3); TOTAL PROTEIN 5.6 g/dL (6.4-8.2)
[2019-09-21 08:00] VITALS: BP 155/64
[2019-09-21] MEDS: BUDESONIDE 0.5 MG/2 ML INHA NPPB SCH ×2 (08:50→21:02)
[2019-09-21] MEDS: AMLODIPINE 5 MG TABLET PO SCH (09:17)
[2019-09-21] MEDS: FAMOTIDINE 20 MG TABLET PO SCH (09:17)
[2019-09-21] MEDS: DOXYCYCLINE 100MG TABLET PO SCH ×2 (09:18→20:30)
[2019-09-21] MEDS: LABETALOL 100 MG TABLET PO SCH ×2 (09:18→20:30)
[2019-09-21] MEDS: CEFTRIAXONE PMX 1GM/50ML 50 ML IV SCH (12:01)
[2019-09-21 14:00] VITALS: BP 125/67
[2019-09-21] MEDS ORDERED: FAMOTIDINE 20 MG TABLET PO SCH (17:00)
[2019-09-21] MEDS: PANTOPROZOLE 40MG TABLET PO SCH (17:31)
[2019-09-21 19:25] VITALS: BP 143/61
[2019-09-21] MEDS: POLYETHYLENE GLYCOL 17 GM PACKET PO PRN (20:30)
[2019-09-21] MEDS: NICOTINE 7 MG/24 HR PATCH.TD24 TD SCH (20:30)
[2019-09-21] MEDS: LATANOPROST OPHTH 0.005%, 2.5ML EACHEYE SCH (20:31)
[2019-09-22 01:00] VITALS: BP 133/65
[2019-09-22] MEDS: ALBUTEROL/IPRATROPIUM 2.5MG/0.5MG, 3 ML NPPB SCH ×5 (02:58→23:23)
[2019-09-22] MEDS ORDERED: LORazepam 0.5MG TABLET PO PRN (03:30)
[2019-09-22 06:08] LABS: CALCIUM 7.9 mg/dL (8.5-10.1); CHLORIDE 106 mmol/L (98-107)
[2019-09-22 06:12] LABS: ALANINE AMINOTRANSFERASE 119 U/L (12-78); ALBUMIN 2.5 g/dL (3.4-5.0); ALKALINE PHOSPHATASE 65 U/L (45-117); ANION GAP 2 mmol/L (5-15); BILIRUBIN,TOTAL 0.7 mg/dL (0.2-1.0); CREATININE 1.52 mg/dL (0.7-1.3); TOTAL PROTEIN 5.4 g/dL (6.4-8.2)
[2019-09-22] MEDS: GUAIFENESIN 200 MG TABLET PO SCH ×4 (06:27→20:45)
[2019-09-22] MEDS: DOXYCYCLINE 100MG TABLET PO SCH ×2 (08:04→20:46)
[2019-09-22] MEDS: PANTOPROZOLE 40MG TABLET PO SCH ×2 (08:04→16:25)
[2019-09-22] MEDS: AMLODIPINE 5 MG TABLET PO SCH (08:04)
[2019-09-22] MEDS: LABETALOL 100 MG TABLET PO SCH ×2 (08:05→20:54)
[2019-09-22] MEDS: BUDESONIDE 0.5 MG/2 ML INHA NPPB SCH ×2 (08:30→20:28)
[2019-09-22 09:02] VITALS: BP 165/75
[2019-09-22] MEDS ORDERED: MELATONIN 5 MG TABLET PO PRN (09:30)
--- NOTE | 2019-09-22 12:48 | NUR ---
PUREED TEXTURE WITH THIN LIQUIDS, NO STRAWS - SENIOR IT BUSINESS ANALYST UPDATED SWALLOW PRECAUTION SIGN Addendum: 09/22/19 at 1249 by Mikayla PALOMO Amended: Links added.
[2019-09-22 13:08] VITALS: BP 159/75
[2019-09-22] MEDS: CEFTRIAXONE PMX 1GM/50ML 50 ML IV SCH (13:13)
[2019-09-22] MEDS: POLYETHYLENE GLYCOL 17 GM PACKET PO PRN (20:45)
[2019-09-22] MEDS: LATANOPROST OPHTH 0.005%, 2.5ML EACHEYE SCH (20:46)
[2019-09-22] MEDS: NICOTINE 7 MG/24 HR PATCH.TD24 TD SCH (20:46)
[2019-09-22 20:52] VITALS: BP 150/68
[2019-09-22] MEDS: CALCIUM CARBONATE 500 MG TAB.CHEW PO PRN (23:06)
[2019-09-23 01:44] VITALS: BP 157/71
[2019-09-23] MEDS: ALBUTEROL/IPRATROPIUM 2.5MG/0.5MG, 3 ML NPPB SCH ×2 (03:38→09:45)
[2019-09-23] MEDS: GUAIFENESIN 200 MG TABLET PO SCH ×2 (06:20→11:32)
[2019-09-23 06:44] LABS: ANION GAP 1 mmol/L (5-15); CALCIUM 7.8 mg/dL (8.5-10.1); CHLORIDE 108 mmol/L (98-107); CREATININE 1.38 mg/dL (0.7-1.3)
[2019-09-23 07:20] VITALS: BP 147/75
[2019-09-23] MEDS: PANTOPROZOLE 40MG TABLET PO SCH (08:16)
[2019-09-23] MEDS: AMLODIPINE 5 MG TABLET PO SCH (08:16)
[2019-09-23] MEDS: LABETALOL 100 MG TABLET PO SCH (08:16)
[2019-09-23] MEDS: DOXYCYCLINE 100MG TABLET PO SCH (08:16)
[2019-09-23 08:27] VITALS: BP 170/76
[2019-09-23] MEDS: BUDESONIDE 0.5 MG/2 ML INHA NPPB SCH (09:45)
[2019-09-23] MEDS ORDERED: ACET325T26 PO (10:45)
[2019-09-23] MEDS ORDERED: IPRA3AMP30 NPPB (10:45)
[2019-09-23] MEDS ORDERED: POLY17PO5 PO (10:45)
[2019-09-23] MEDS ORDERED: CEFD300C37 PO (10:45)
[2019-09-23] MEDS ORDERED: FLUT1DIS3 INH (10:45)
[2019-09-23] MEDS ORDERED: NICO-485 TD (10:45)
[2019-09-23] MEDS ORDERED: DOXY100C15 PO (10:45)
[2019-09-23] MEDS ORDERED: PANT40TA5 PO (10:45)
[2019-09-23] MEDS ORDERED: MELA5TAB14 PO (10:45)
[2019-09-23] MEDS ORDERED: LACT1TAB13 PO (10:45)
[2019-09-23] MEDS ORDERED: PRED20TA PO (10:45)
[2019-09-23] MEDS ORDERED: GUAI200T37 PO (10:45)
[2019-09-23] MEDS ORDERED: TIOT18CA INH (10:45)
[2019-09-23] MEDS ORDERED: Maalox/Hyoscyamine/Lidocaine PO (10:47)
[2019-09-23] MEDS ORDERED: MAALOX/HYOSCYAMINE/LIDOCAINE 45 ML BTL PO PRN (11:00)
[2019-09-23] MEDS: CEFTRIAXONE PMX 1GM/50ML 50 ML IV SCH (11:32)
[2019-09-23] MEDS: CALCIUM CARBONATE 500 MG TAB.CHEW PO PRN (11:32)
[2019-09-23 14:02] VITALS: BP 146/65
== END 2019-09-23 15:07 | DRG 193 ==
LOC: ED 14:45 → EDIP 14:46 → ED 15:01 → 3N 16:35
PROVIDERS: ADMIT Internal Medicine; ATTEND Internal Medicine
PROC: 30233N1 Transfusion of Nonautologous Red Blood Cells into Peripheral Vein, Percutaneous Approach (ICD-10-PCS; principal; 2019-09-17)
DX: J18.9 Pneumonia, unspecified organism (principal); J96.01 Acute respiratory failure with hypoxia; G93.41 Metabolic encephalopathy; N17.9 Acute kidney failure, unspecified; D62 Acute posthemorrhagic anemia; E44.0 Moderate protein-calorie malnutrition; I13.0 Hypertensive heart and chronic kidney disease with heart failure and stage 1 through stage 4 chronic kidney disease, or unspecified chronic kidney disease; R65.10 Systemic inflammatory response syndrome (SIRS) of non-infectious origin without acute organ dysfunction; E83.51 Hypocalcemia; I50.9 Heart failure, unspecified; F17.200 Nicotine dependence, unspecified, uncomplicated; E78.00 Pure hypercholesterolemia, unspecified; E78.5 Hyperlipidemia, unspecified; E83.39 Other disorders of phosphorus metabolism; F17.210 Nicotine dependence, cigarettes, uncomplicated; I25.10 Atherosclerotic heart disease of native coronary artery without angina pectoris; I35.1 Nonrheumatic aortic (valve) insufficiency; J20.9 Acute bronchitis, unspecified; J43.9 Emphysema, unspecified; K59.00 Constipation, unspecified; N18.3 Chronic kidney disease, stage 3 (moderate); R13.10 Dysphagia, unspecified; R32 Unspecified urinary incontinence; Z96.649 Presence of unspecified artificial hip joint; S30.1XXA Contusion of abdominal wall, initial encounter; T38.0X5A Adverse effect of glucocorticoids and synthetic analogues, initial encounter; Z51.5 Encounter for palliative care; Z66 Do not resuscitate; Z86.73 Personal history of transient ischemic attack (TIA), and cerebral infarction without residual deficits; Z95.1 Presence of aortocoronary bypass graft; Z99.81 Dependence on supplemental oxygen; Z90.49 Acquired absence of other specified parts of digestive tract; Z68.20 Body mass index [BMI] 20.0-20.9, adult
CPT/HCPCS: 36415; 36600; 71045; 71250; 71260; 74018; 74176; 74230; 80048; 80053; 80069; 81001; 82272; 82803; 83036; 83735; 84145; 84484; 85014; 85018; 85025; 85379; 85610; 86850; 86900; 86923; 87040; 87070; 87205; 87400; 93005; 93306; 94640; G0378; J0456; J0696; J1644; J1650; J7613; J7620; J7626; Q9967; J1940; J2060; J2270; J2920; J2930; J3475; J7030; J7050; J7512; P9016

== ENCOUNTER → 2019-10-09 | Outpatient (CLI) | payer MEDICARE ==
[~2019-10-09] MED LIST changes: +ACET325T26 PO; +AMLO-150 PO; +ATOR20TA37 PO; +BUDE10.2 INH; +CEFD300C37 PO; +DOXY100C15 PO; +FLUT1DIS3 INH; +GUAI200T37 PO; +IPRA3AMP30 NPPB; +IPRA4AER INH; +LABE100T6 PO; +LACT1TAB13 PO; +MELA5TAB14 PO; +Maalox/Hyoscyamine/Lidocaine PO; +NICO-485 TD; +PANT40TA5 PO; +POLY17PO5 PO; +PRED20TA PO; +TIOT18CA INH
== END | disposition home or self-care (01) ==
LOC: CFH 10:47
PROVIDERS: ATTEND Internal Medicine Geriatric Medicine
DX: M79.81 Nontraumatic hematoma of soft tissue (principal); J44.9 Chronic obstructive pulmonary disease, unspecified; F17.200 Nicotine dependence, unspecified, uncomplicated
CPT/HCPCS: 72192

== ENCOUNTER → 2019-12-29 | Outpatient (CLI) | payer MEDICARE | END | disposition home or self-care (01) | LOC: CVU 15:50 | PROVIDERS: ATTEND Registered Nurse | DX: I65.23 Occlusion and stenosis of bilateral carotid arteries (principal); I10 Essential (primary) hypertension; E78.5 Hyperlipidemia, unspecified | CPT/HCPCS: 93880 ==

== ENCOUNTER → 2020-11-01 | Outpatient (CLI) | payer MEDICARE ==
[~2020-11-01] MED LIST changes: -ENAL10TA PO; +ENAL10TA9 PO; -LATA2.5D3 EACHEYE; +LATA2.5D4 EACHEYE; -PANT40TA5 PO; +PANT40TA6 PO; +REGADENOSON 0.4 MG/5 ML SYRINGE ONE
== END | disposition home or self-care (01) ==
LOC: CFH 12:49
PROVIDERS: ATTEND Internal Medicine Cardiovascular Disease
DX: R07.9 Chest pain, unspecified (principal); R06.02 Shortness of breath
CPT/HCPCS: 78452; 93017; A9502; J2785